=== PATIENT | female | born 1950 | race Caucasian/White ===

== ENCOUNTER 2016-06-05 10:47 | Inpatient (IN) | payer OTHER ==
[2016-06-05] MEDS ORDERED: TYLENOL PO PRN (11:23)
[2016-06-05] MEDS ORDERED: ZOFRAN IV PRN (11:25)
[2016-06-05] MEDS ORDERED: SOLU-MEDROL IV SCH (11:30)
[2016-06-05] MEDS ORDERED: ROCEPHIN 1 GM/NS 50 ML IV SCH (11:30)
[2016-06-05] MEDS ORDERED: LEVAQUIN 500 MG/D5W 100 ML IV SCH (11:30)
[2016-06-05 12:54] LABS: BLOOD TYPE ARTERIAL; DRAW SITE R RADIAL; METHB 0.5 % (0.0-1.5); O2(CT) 17.9 mL/dL (15.0-23.0); PCO2(98.6) 32 mmHg (35-45); PO2(98.6) 70 mmHg (60-100); SAMPLE BLOOD; SAO2 93.1 % (95.0-100.0); THB 13.8 g/dL (11.5-17.4); pH(98.6) 7.45 (7.35-7.45)
[2016-06-05 12:58] LABS: ALLEN TEST YES; MODALITY ROOM AIR
[2016-06-05] MEDS: DUONEB (A & A) INH SCH ×3 (13:02→20:00)
[2016-06-05] MEDS ORDERED: NS 1,000 ML ONE (13:15)
--- NOTE | 2016-06-05 13:28 | EKG Report ---
Test Performed on : 06/05/2016 1:25:27 PM Test Reason : CP Blood Pressure : / mmHG Vent. Rate : 097 BPM Atrial Rate : 097 BPM P-R Int : 122 ms QRS Dur : 072 ms QT Int : 344 ms P-R-T Axes : 012 -10 045 degrees QTc Int : 436 ms Normal sinus rhythm. Septal infarct , age undetermined Abnormal ECG No previous ECGs available Confirmed by Marquise Elder MD ([id number]) on 06/12/2016 9:05:32 PM
[2016-06-05] MEDS: SOLU-MEDROL IV SCH ×2 (14:49→21:41)
[2016-06-05] MEDS ORDERED: LEVAQUIN 500 MG in NS 100 ML IV SCH (15:30)
--- NOTE | 2016-06-05 16:13 | Diag Imaging Result Document ---
PROCEDURE NAME: CT THORAX W/CONTRAST - 06/05/2016 CT OF THE CHEST WITH INTRAVENOUS CONTRAST: COMPARISON: The current study is compared with that of 11/22/2013. FINDINGS: There are calcified granulomata in both upper lobes. There is patchy acinar type airspace opacities throughout the left lower lobe. There is some degree of this abnormality also in the lingula. These findings were not present on the previous study. There is an enlarged node in the lower right hilum measuring over 12 mm in diameter, which is also identifiable on the previous examination of 11/22/2013, at which time it measured 11 mm. IMPRESSION: 1. Granulomatous changes. 2. Mild pneumonitis/pneumonia left upper lobe and left lower lobe.
[2016-06-05] MEDS ORDERED: NS 1,000 ML IV ONE (16:51)
[2016-06-05] MEDS ORDERED: AZACTAM 1 GM in NS 50 ML IV SCH (17:00)
[2016-06-05 17:36] LABS: URINE SOURCE VOIDED
[2016-06-05] MEDS: HUMULIN R (PARKWAY) SUBQ SCH ×2 (17:37→22:43)
[2016-06-05 17:54] LABS: BILIRUBIN URINE NEGATIVE (NEGATIVE); BLOOD URINE NEGATIVE (NEGATIVE); CLARITY CLEAR (CLEAR); COLOR YELLOW; GLUCOSE URINE NEGATIVE (NEGATIVE); LEUKOCYTES URINE TRACE (NEGATIVE); NITRITE URINE NEGATIVE (NEGATIVE); PH URINE 6.5; PROTEIN URINE TRACE mg/dL (NEGATIVE); URINE MICROSCOPIC NEEDED? YES; UROBILINOGEN URINE NORMAL
[2016-06-05 17:56] LABS: URINE EPITHELIAL CELLS <10 /HPF (<10); URINE WBC <10 /HPF (<10)
[2016-06-05] MEDS: NEURONTIN PO PRN (18:32)
--- NOTE | 2016-06-05 19:46 | HISTORY AND PHYSICAL ---
CHIEF COMPLAINT: Flu-like symptoms for 3 weeks. HISTORY OF PRESENT ILLNESS: This is a 65-year-old female with diabetes and asthma presenting with pain, fatigue, body aches, nausea and blood-tinged sputum for the last 3 weeks. She reports episodes of diarrhea upon arrival. No signs of distress at this p.m. The patient has been dealing with this for about 3 weeks. She received 1 course of antibiotics with ciprofloxacin for 10 days and then was re-evaluated and was placed on Levaquin, which she has been on for the last 3 days, but has not clinically improved. She has had 2, I think, screens for flu, which were negative. Workup was negative. She was directly admitted per Dr. Neal today for failure to improve. Chest CT has confirmed pneumonia and she was admitted for treatment. PAST MEDICAL HISTORY: 1. Type 2 diabetes. 2. Asthma. 3. IBS. 4. Interstitial cystitis. 5. Mitral valve prolapse. 6. Dyslipidemia. 7. Arthritis. PAST SURGICAL HISTORY: 1. Partial hysterectomy in 1976, complete in 2010. 2. Breast reduction. 3. Bladder surgery. SOCIAL HISTORY: No tobacco. No ethanol. FAMILY HISTORY: TB in grandfather. ALLERGIES: Latex, Macrobid, penicillin and codeine. REVIEW OF SYSTEMS: Otherwise negative times a 10 point review of systems. PHYSICAL EXAMINATION: VITAL SIGNS: Blood pressure 123/47, heart rate 93, respiratory rate 20, temperature 99.9 degrees, 93% on room air. CARDIOVASCULAR: Regular rate and rhythm. PULMONARY: Bilateral breath sounds. Clear to auscultation. GI: Soft, nontender, nondistended. Bowel sounds are positive. EXTREMITIES: No clubbing or cyanosis. LYMPHATICS: No peripheral edema. NEUROLOGICAL: Exam was nonfocal. MUSCULOSKELETAL: 4/5 in all 4 extremities. LABORATORY DATA: Chemistries were unremarkable. Plasma lactate is up a little bit. CBC I do not see here, but I think was done as an outpatient showing a white count of 8.5. That was done today. PROBLEM LIST: This is a 65-year-old female, presenting with pneumonia failing outpatient therapy. 1. Left upper lobe, left lower lobe pneumonia failing outpatient therapy. She has been empirically placed on Rocephin and Levaquin. We will continue that treatment, although I may increase her dose of Levaquin to 750 and follow clinically. Breathing treatments and we will follow clinically. She has been placed on steroids as well. 2. Diabetes. We will continue to monitor her kidney dysfunction, her blood pressure and we will follow closely.
[2016-06-05] MEDS: AZACTAM 1 GM in NS 50 ML IV SCH ×2 (21:37→21:41)
[2016-06-05] MEDS: PATIENT'S OWN MED PO SCH (21:48)
[2016-06-06] MEDS: DUONEB (A & A) INH SCH ×7 (00:36→23:41)
[2016-06-06] MEDS: SOLU-MEDROL IV SCH ×2 (04:23→11:34)
[2016-06-06] MEDS: AZACTAM 1 GM in NS 50 ML IV SCH ×3 (04:23→21:23)
[2016-06-06] MEDS: HUMULIN R (PARKWAY) SUBQ SCH ×5 (06:24→21:40)
[2016-06-06] MEDS: PRILOSEC PO SCH (06:41)
[2016-06-06 06:44] LABS: HEMATOCRIT 38.1 % (37.0-47.0); HEMOGLOBIN 12.7 g/dL (12.0-16.0); MCH 28.6 PG (27-31); MCHC 33.3 g/dL (33-37); MCV 85.8 FL (81-99); MPV 10.7 FL (7.4-10.4); RBC 4.44 XMIL (4.2-5.4)
[2016-06-06 07:02] LABS: HEMOGLOBIN A1C 7.5 % (4.8-6.0)
[2016-06-06 07:07] LABS: AGAP 15; BUN 21 mg/dL (8-22); CALCIUM 9.1 mg/dL (8.8-10.2); CHLORIDE 98 mmol/L (98-107); COSMO 281; POTASSIUM 3.9 mmol/L (3.5-5.1); SODIUM 133 mmol/L (136-145); TCO2 20 mmol/L (25-35)
[2016-06-06] MEDS: PATIENT'S OWN MED PO SCH ×5 (09:51→21:37)
[2016-06-06] MEDS: LOVENOX SUBQ SCH (10:02)
[2016-06-06] MEDS: LEVAQUIN 750 MG/D5W 150 ML IV SCH (16:32)
[2016-06-06] MEDS: MBX SOLUTION MT PRN ×2 (16:42→18:52)
--- NOTE | 2016-06-06 19:28 | PROGRESS NOTE ---
DATE: 06/06/2016 SUBJECTIVE: Patient has no focal complaints. OBJECTIVE: Vital Signs: Blood pressure 140/64, heart rate 102, respiratory rate 18, temperature 98.7 degrees, 96% on room air. Cardiovascular: Regular rate and rhythm. Pulmonary: Bilateral breath sounds. Clear to auscultation. Gastrointestinal: Soft, nontender, nondistended. Bowel sounds are positive. Extremities: No clubbing or cyanosis. Lymphatics: No peripheral edema. Neurological Examination: Nonfocal. LABORATORY DATA: Shows very elevated blood sugars in the almost 400 range. PROBLEM LIST: 1. Pneumonia, failing outpatient therapy. She is on Levaquin and aztreonam day 2. Clinically improved on breathing treatments. 2. Uncontrolled diabetes likely related to steroids. We will decrease her steroids and add some low-dose Lantus just for control and follow clinically. 3. Disposition. Possibly home in the next 1-2 days. I am going to get some sinus films for evaluation.
[2016-06-06] MEDS: NEURONTIN PO PRN (21:22)
[2016-06-07] MEDS: SOLU-MEDROL IV SCH ×2 (01:19→11:55)
[2016-06-07] MEDS: ROBITUSSIN-DM PO PRN ×4 (01:20→21:34)
[2016-06-07] MEDS: DUONEB (A & A) INH SCH ×6 (03:50→23:30)
[2016-06-07] MEDS: AZACTAM 1 GM in NS 50 ML IV SCH ×3 (04:16→21:12)
[2016-06-07 06:39] LABS: HEMATOCRIT 35.6 % (37.0-47.0); HEMOGLOBIN 11.7 g/dL (12.0-16.0); MCH 28.7 PG (27-31); MCHC 32.9 g/dL (33-37); MCV 87.3 FL (81-99); MPV 10.8 FL (7.4-10.4); RBC 4.08 XMIL (4.2-5.4)
[2016-06-07] MEDS: PRILOSEC PO SCH (06:48)
[2016-06-07] MEDS: HUMULIN R (PARKWAY) SUBQ SCH ×4 (06:48→22:45)
[2016-06-07 07:21] LABS: AGAP 15; BUN 21 mg/dL (8-22); CALCIUM 9.1 mg/dL (8.8-10.2); CHLORIDE 97 mmol/L (98-107); COSMO 284; POTASSIUM 4.2 mmol/L (3.5-5.1); SODIUM 133 mmol/L (136-145); TCO2 21 mmol/L (25-35)
[2016-06-07] MEDS: PATIENT'S OWN MED PO SCH ×4 (09:37→09:38)
[2016-06-07] MEDS: LOVENOX SUBQ SCH (09:37)
--- NOTE | 2016-06-07 10:47 | Diag Imaging Result Document ---
PROCEDURE NAME: SINUSES - 06/07/2016 SINUS SERIES: FINDINGS: There is an air fluid level in the right maxillary sinus. There is possibly mild mucosal thickening in the bilateral maxillary sinuses. The remainder of the paranasal sinuses appear essentially clear. IMPRESSION: Right maxillary sinusitis. Possible mild mucosal thickening in the left maxillary sinus.
[2016-06-07] MEDS: LEVAQUIN 750 MG/D5W 150 ML IV SCH (17:51)
[2016-06-07] MEDS ORDERED: LANTUS INSULIN (PARKWAY) SUBQ SCH ×2 (19:00→19:07)
--- NOTE | 2016-06-07 19:48 | PROGRESS NOTE ---
DATE: 06/07/2016 SUBJECTIVE: Patient is breathing better. She is complaining of a lot of pain on the left side of her ribs. OBJECTIVE: Vital signs: Blood pressure 141/60, heart rate 84, respiratory rate 18, temperature 98.1 degrees, 94% on room air. Cardiovascular: Regular rate, rhythm. Pulmonary: Bilateral breath sounds. Clear to auscultation. GI: Soft, nontender, nondistended. Bowel sounds are positive. LABORATORY DATA: Sugars still high 292 to 366. Hematology okay. PROBLEM LIST: 1. Bronchitis, pneumonia failing outpatient. She is on Levaquin, aztreonam, seems to be doing well. 2. Sinusitis. Continue antibiotics and decongestant and we will continue to follow. DISPOSITION: I anticipate probably discharge tomorrow if clinically improved.
[2016-06-07] MEDS ORDERED: COLACE PO PRN (21:28)
[2016-06-07] MEDS: NEURONTIN PO PRN (22:44)
[2016-06-08] MEDS: NEURONTIN PO PRN (00:41)
[2016-06-08] MEDS: DUONEB (A & A) INH SCH ×3 (03:03→12:10)
[2016-06-08] MEDS ORDERED: AZACTAM ONE (03:40)
[2016-06-08] MEDS: ROBITUSSIN-DM PO PRN ×2 (03:46→10:46)
[2016-06-08] MEDS: AZACTAM 1 GM in NS 50 ML IV SCH ×2 (03:48→12:59)
[2016-06-08] MEDS: PRILOSEC PO SCH (06:29)
[2016-06-08] MEDS: HUMULIN R (PARKWAY) SUBQ SCH ×3 (06:29→17:35)
[2016-06-08 06:48] LABS: AGAP 14; BUN 20 mg/dL (8-22); CALCIUM 8.3 mg/dL (8.8-10.2); CHLORIDE 100 mmol/L (98-107); COSMO 283; POTASSIUM 3.2 mmol/L (3.5-5.1); SODIUM 136 mmol/L (136-145); TCO2 21 mmol/L (25-35)
[2016-06-08 06:51] LABS: HEMATOCRIT 34.7 % (37.0-47.0); HEMOGLOBIN 11.3 g/dL (12.0-16.0); MCH 28.6 PG (27-31); MCHC 32.6 g/dL (33-37); MCV 87.8 FL (81-99); MPV 10.8 FL (7.4-10.4); RBC 3.95 XMIL (4.2-5.4)
--- NOTE | 2016-06-08 07:17 | Diag Imaging Result Document ---
PROCEDURE NAME: RIBS UNILAT W/PA CHEST LEFT - 06/07/2016 PLAIN RADIOGRAPH OF THE CHEST AND LEFT RIBS, 5 VIEWS: COMPARISON: Chest radiograph dated 05/09/2013. FINDINGS: No discrete rib fracture or intrinsic osseous lesion is identified. There is evidence of prior granulomatous disease, stable. The there is very vague nodular infiltrate at the left lung base corresponding to the infiltrate seen on the recent CT. There is no evidence of pleural fluid collection or pneumothorax. Cardiac silhouette is unremarkable. IMPRESSION: 1. No evidence of rib fracture or intrinsic osseous lesion. 2. Very vague infiltrate at the left lung base.
[2016-06-08] MEDS ORDERED: SOLU-MEDROL IV SCH (09:00)
[2016-06-08] MEDS ORDERED: CLARITIN-D 24 HR PO SCH (09:00)
[2016-06-08] MEDS: PATIENT'S OWN MED PO SCH ×4 (10:09→10:10)
[2016-06-08] MEDS: LOVENOX SUBQ SCH (10:10)
[2016-06-08] MEDS ORDERED: KLOR-CON PO ONE (15:32)
[2016-06-08 16:47] VITALS: BP 147/78
--- NOTE | 2016-06-08 18:15 | DISCHARGE SUMMARY ---
ADMISSION DATE: 06/05/2016 DISCHARGE DATE: 06/08/2016 ADMISSION DIAGNOSES: 1. Left upper lobe pneumonia failed outpatient treatment. 2. Diabetes type 2. DISCHARGE DIAGNOSES: 1. Left upper lobe pneumonia failed outpatient treatment. 2. Diabetes type 2. SUMMARY OF FINDINGS: This is a 65-year-old female who presented from her primary care physician's office as a direct admit after she had been dealing with fatigue, body aches, nausea, and some blood-tinged sputum for about 3 weeks. She had a course of antibiotics with Cipro for 10 days and was reevaluated and placed on Levaquin and had taken 3 days of that but clinically had not been improved. She had 2 flu screens which were negative. Other workup was negative. She failed to improve so they wanted to admit her as a direct admit. We did a CT of the chest that confirmed her pneumonia. She was admitted, placed on IV antibiotics, breathing treatments and steroids. We continued pattern blood sugars and sliding scale insulin. She has improved. Feeling better. She was noted to have a potassium this morning of 3.2. We will supplement that with 40 mg of potassium p.o. x1 now and it is felt she can safely be discharged home today. DISCHARGE MEDICATION: She received a prescription for Levaquin 500 mg p.o. daily for 10 days and a Medrol Dosepak as directed. She will continue her home medications with no changes. FOLLOWUP: She should follow up with her primary care physician in the next 1-2 weeks. All discharge instructions were reviewed with the patient. 35-minute discharge. Dictated by PETER Oswald for Denver Velazquez MD
[2016-06-10 15:26] LABS: MYCOPLASMA PNEUMONIAE AB SEE COMMENTS (())
--- NOTE | 2016-06-17 13:04 | DISCHARGE SUMMARY ---
ADMISSION DATE: 06/05/2016 DISCHARGE DATE: 06/08/2016 DISCHARGE SUMMARY ADDENDUM: The patient had pneumonia, it was not otherwise specified. No organism was isolated. She had been on Cipro and then was placed on Levaquin and aztreonam and discharged home. She also had concurrent sinusitis.
== END 2016-06-08 18:40 | disposition home or self-care (01) | DRG 194 ==
LOC: P.DIRADM 10:47 → P.MEDSURG 11:59
PROVIDERS: ADMIT Family Medicine; ATTEND Internal Medicine
DX: J18.9 Pneumonia, unspecified organism (principal); R04.2 Hemoptysis; E11.65 Type 2 diabetes mellitus with hyperglycemia; J45.909 Unspecified asthma, uncomplicated; K58.9 Irritable bowel syndrome, unspecified; I34.1 Nonrheumatic mitral (valve) prolapse; E78.5 Hyperlipidemia, unspecified; M19.90 Unspecified osteoarthritis, unspecified site; T38.0X5A Adverse effect of glucocorticoids and synthetic analogues, initial encounter; J32.0 Chronic maxillary sinusitis; Z79.899 Other long term (current) drug therapy; Z79.84 Long term (current) use of oral hypoglycemic drugs
CPT/HCPCS: 36415; 70220; 71101; 71260; 80048; 81001; 82550; 82805; 82948; 83036; 83605; 83880; 84484; 85027; 86631; 86632; 86644; 86645; 86713; 86738; 87040; 87070; 87088; 87205; 87804; 93005; 93010; 94640; 94761; 94799; J0696; J1650; J1815; J2405; J2920; J2930; J7030; Q9967; S0073